=== PATIENT | male | born 1945 | race Two or more races ===

== ENCOUNTER → 2018-02-06 | Outpatient (CLI) | END | disposition home or self-care (01) ==

== ENCOUNTER 2018-02-07 06:59 | Inpatient (IN) | END 2018-02-07 23:15 | disposition home or self-care (01) | DRG 812 ==

== ENCOUNTER 2018-02-21 16:28 | Inpatient (IN) | END 2018-02-22 17:29 | disposition home or self-care (01) | DRG 809 ==

== ENCOUNTER 2018-03-07 11:26 | Inpatient (IN) | END 2018-03-11 20:25 | disposition still patient (30) | DRG 728 ==

== ENCOUNTER 2018-04-03 15:37 | Observation (INO) | END 2018-04-05 10:20 | disposition home or self-care (01) ==

== ENCOUNTER 2018-05-16 06:53 | Observation (INO) | payer MEDICARE, OTHER ==
[~2018-05-16] VITALS: Ht 180.3 cm; Wt 86.4 kg
[~2018-05-16 06:53] MED LIST: CARV12.579 PO; FESO4TAB PO; ICOS1CAP PO; LISI10TA2 PO; MELO7.5T38 PO; MEMA7CAP PO; OMEP1CAP24 PO; ONDA4TAB13 PO; PROC10TA10 PO; QUET150T PO; ROSU40TA35 PO; TAMS0.4C2 PO; VILA40TA PO
[2018-05-16 06:55] VITALS: Ht 180.3 cm; Wt 86.4 kg
[2018-05-16] MEDS ORDERED: PANTOPRAZOLE 40 MG INJ IV STA (07:07)
[2018-05-16] MEDS ORDERED: SOD CHLORIDE 0.9% 0 ML IV ONE (07:18)
[2018-05-16] MEDS ORDERED: ACETAMINOPHEN 325 MG TAB PO PRN ×2 (08:00→10:00)
[2018-05-16] MEDS ORDERED: ONDANSETRON 4 MG INJ IV PRN (08:00)
--- NOTE | 2018-05-16 08:26 | ERD ---
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 The patient was sent by Dr. Reed for transfusion of 4 units of packed red blood cells for a hemoglobin of less than 7. He denies bleeding. He has no symptoms at this time. He denies chest pain or shortness of breath. Upon review of old medical records this is the patient's sixth visit to the ER since January 2018 and he does get admitted frequently for transfusions. ROS All systems reviewed and are negative except as per history of present illness. Medications Home Meds Reported Medications Vilazodone Hcl (Viibryd) 40 Mg Tablet, 40 MG PO DAILY, TAB 04/03/18 Tamsulosin Hcl* (Tamsulosin Hcl*) 0.4 Mg Cap.er.24h, 0.4 MG PO HS, CAP 04/03/18 Memantine* (Namenda* XR) 7 Mg Cap.spr.24, 7 MG PO DAILY, #30 TAB 04/03/18 Quetiapine Fumarate* (Seroquel* XR) 150 Mg Tab.sr.24h, 150 MG PO DAILY, #30 TAB 04/03/18 Ondansetron Hcl* (Zofran*) 4 Mg Tab, 4 MG PO BID PRN for NAUSEA AND OR VOMITING, TAB 04/03/18 Prochlorperazine* (Prochlorperazine*) 10 Mg Tablet, 10 MG PO BID PRN for NAUSEA, TAB 04/03/18 Lisinopril* (Lisinopril*) 10 Mg Tablet, 10 MG PO BID, #30 TAB 04/03/18 Icosapent Ethyl (VASCEPA) 1 Gm Capsule, 1 GM PO QID, CAP 04/03/18 Fesoterodine Fumarate (Toviaz) 4 Mg Tab.sr.24h, 4 MG PO DAILY, TAB 04/03/18 Omeprazole/Sodium Bicarbonate (OMEPRAZOLE-BICARB 40-1,100 CAP) 1 Each Capsule, 1 CAP PO DAILY, #30 CAP 04/03/18 Rosuvastatin Calcium* (Crestor*) 40 Mg Tablet, 40 MG PO QHS, #30 TAB 04/03/18 Meloxicam* (Meloxicam*) 7.5 Mg Tablet, 7.5 MG PO BID, #30 TAB 04/03/18 Carvedilol* (Carvedilol*) 12.5 Mg Tablet, 12.5 MG PO BID, #60 TAB 04/03/18 Allergies Allergies: Coded Allergies: No Known Allergy (Unverified , 05/16/18) PMhx/Soc History of Surgery: No Anesthesia Reaction: No Hx Neurological Disorder: No Hx Respiratory Disorders: No Hx Cardiac Disorders: Yes (cardiomegaly, HTN, HLD, IN ) Hx Psychiatric Problems: No Hx Miscellaneous Medical Probl: Yes (Anemia) Hx Alcohol Use: No Hx Substance Use: No Hx Tobacco Use: No Smoking Status: Never smoker FmHx Family History: No diabetes Physical Exam Vitals Vital Signs Date Temp Pulse Resp B/P (MAP) Pulse Ox O2 O2 Flow FiO2 Time Delivery Rate 05/16/18 88 16 129/72 99 Room Air 07:30 (91) 05/16/18 97.8 89 18 147/67 100 06:55 (93) Physical Exam Const: No acute distress Head: Atraumatic Eyes: Normal Conjunctiva ENT: Normal External Ears, Nose and Mouth. Neck: Full range of motion. No meningismus. Resp: Clear to auscultation bilaterally Cardio: Regular rate and rhythm, no murmurs Abd: Soft, non tender, non distended. Normal bowel sounds Skin: Pale skin Back: No midline or flank tenderness Ext: No cyanosis, or edema Neur: Awake and alert Psych: Normal Mood and Affect Result Diagram: 05/16/18 0716 05/16/18 0716 Results 24 hrs Laboratory Tests Test 05/16/18 07:16 White Blood Count 13.1 10^3/ul Red Blood Count 2.43 10^6/ul Hemoglobin 6.9 g/dl Hematocrit 21.3 % Mean Corpuscular Volume 87.7 fl Mean Corpuscular Hemoglobin 28.4 pg Mean Corpuscular Hemoglobin Concent 32.4 g/dl Red Cell Distribution Width 15.2 % Platelet Count 85 10^3/UL Mean Platelet Volume 9.0 fl Immature Granulocytes % 0.200 % Neutrophils % % Lymphocytes % % Monocytes % % Eosinophils % % Basophils % % Nucleated Red Blood Cells % 0.0 /100WBC Immature Granulocytes # 0.030 10^3/ul Neutrophils # 10^3/ul Lymphocytes # 10^3/ul Monocytes # 10^3/ul Eosinophils # 10^3/ul Basophils # 10^3/ul Nucleated Red Blood Cells # 10^3/ul Prothrombin Time 14.0 Sec Prothrombin Time Ratio 1.1 INR International Normalized Ratio 1.07 Activated Partial Thromboplast Time 22.3 Sec Sodium Level 143 mmol/L Potassium Level 4.1 mmol/L Chloride Level 104 mmol/L Carbon Dioxide Level 27 mmol/L Anion Gap 12 Blood Urea Nitrogen 14 mg/dl Creatinine 0.66 mg/dl Est Glomerular Filtrat Rate mL/min mL/min Glucose Level 145 mg/dl Calcium Level 9.1 mg/dl Total Bilirubin 0.6 mg/dl Direct Bilirubin 0.00 mg/dl Indirect Bilirubin 0.6 mg/dl Aspartate Amino Transf (AST/SGOT) 58 IU/L Alanine Aminotransferase (ALT/SGPT) 68 IU/L Alkaline Phosphatase 69 IU/L Troponin I < 0.012 ng/ml Total Protein 8.9 g/dl Albumin 4.0 g/dl Globulin 4.90 g/dl Albumin/Globulin Ratio 0.81 Current Medications Medications Dose Sig/Tony Start Time Status Last (Trade) Ordered Route PRN Stop Time Admin Dose Reason Admin 40 mg ONCE STAT 05/16/18 DC 05/16/18 Pantoprazole IV 07:07 07:57 (Protonix 05/16/18 07:08 Iv) Sodium 0 ml @ 0 Q0M ONCE 05/16/18 DC Chloride mls/hr IV 07:18 05/16/18 07:19 Ondansetron 4 mg BRIDGE ORDER 05/16/18 HCl (Zofran PRN IV 08:00 Inj) vomiting 05/17/18 07:59 650 mg ER BRIDGE 05/16/18 Acetaminophen PRN PO pain 08:00 (Tylenol 05/17/18 07:59 Tab) Procedures/MDM EKG read by me: Rate/Rhythm: Regular rate and rhythm at a normal rate Intervals: Normal Impression: No evidence of ischemia or arrhythmia Patient is a 72-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 The patient has a hemoglobin of less than 7 and I will transfused 4 units of packed red blood cells. The patient will be admitted to the care of Dr. Vera the primary doctor to a medical surgical bed. Critical Care: Time: 35 minutes excluding all billable procedures. Treatments/Evaluations: Close monitoring and treatment of unstable vital signs, cardiorespiratory, and neurologic status, while maintaining tight balance of fluid, respiratory, and cardiac interventions. Departure Diagnosis: Primary Impression: Anemia Anemia type: unspecified type Qualified Codes: D64.9 - Anemia, unspecified Condition: ELANA Samano MD May 16, 2018 08:26
[2018-05-16 09:25] VITALS: BP 133/64; PULSE 87; RESP 20
--- NOTE | 2018-05-16 09:39 | NUR ---
Received pt from ER dx acute anemia. Pt accompanied by a friend, RIA ZAPATA, Hakeem Maya MD made aware, received orders for 4 units PRBC, 20mg lasix after 2nd bag, tylenol 650mg q4h for pain and temp >100, protonix 40mg po daily, morphine 2mg IV q4h prn for severe pain, norco 5/325 q4h prn for moderate pain, CBC/CMP in the am, cardiac diet.
[2018-05-16] MEDS ORDERED: HYDROCODONE/APAP (5/325) TAB PO PRN (10:00)
[2018-05-16] MEDS ORDERED: FUROSEMIDE 20 MG INJ IV ONE (10:00)
[2018-05-16] MEDS ORDERED: morphine 4 MG/ML VIAL IV PRN (10:00)
--- NOTE | 2018-05-16 11:59 | CONS ---
Consultation Date/Type/Reason Admit Date/Time May 16, 2018 at 07:52 Date/Time of Note DATE: 05/16/18 TIME: 11:59 Past Medical History Home Meds Reported Medications Vilazodone Hcl (Viibryd) 40 Mg Tablet, 40 MG PO DAILY, TAB 04/03/18 Tamsulosin Hcl* (Tamsulosin Hcl*) 0.4 Mg Cap.er.24h, 0.4 MG PO HS, CAP 04/03/18 Memantine* (Namenda* XR) 7 Mg Cap.spr.24, 7 MG PO DAILY, #30 TAB 04/03/18 Quetiapine Fumarate* (Seroquel* XR) 150 Mg Tab.sr.24h, 150 MG PO DAILY, #30 TAB 04/03/18 Ondansetron Hcl* (Zofran*) 4 Mg Tab, 4 MG PO BID PRN for NAUSEA AND OR VOMITING, TAB 04/03/18 Prochlorperazine* (Prochlorperazine*) 10 Mg Tablet, 10 MG PO BID PRN for NAUSEA, TAB 04/03/18 Lisinopril* (Lisinopril*) 10 Mg Tablet, 10 MG PO BID, #30 TAB 04/03/18 Icosapent Ethyl (VASCEPA) 1 Gm Capsule, 1 GM PO QID, CAP 04/03/18 Fesoterodine Fumarate (Toviaz) 4 Mg Tab.sr.24h, 4 MG PO DAILY, TAB 04/03/18 Omeprazole/Sodium Bicarbonate (OMEPRAZOLE-BICARB 40-1,100 CAP) 1 Each Capsule, 1 CAP PO DAILY, #30 CAP 04/03/18 Rosuvastatin Calcium* (Crestor*) 40 Mg Tablet, 40 MG PO QHS, #30 TAB 04/03/18 Meloxicam* (Meloxicam*) 7.5 Mg Tablet, 7.5 MG PO BID, #30 TAB 04/03/18 Carvedilol* (Carvedilol*) 12.5 Mg Tablet, 12.5 MG PO BID, #60 TAB 04/03/18 Medications Current Medications Ondansetron HCl (Zofran Inj) 4 mg BRIDGE ORDER PRN IV vomiting; Start 05/16/18 at 08:00; Stop 05/17/18 at 07:59 Tamsulosin HCl (Flomax) 0.4 mg HS PO ; Start 05/16/18 at 21:00 Acetaminophen (Tylenol Tab) 650 mg Q4H PRN PO MILD PAIN(1-3)OR ELEVATED TEMP; Start 05/16/18 at 10:00 Pantoprazole (Protonix Tab) 40 mg DAILY@06 PO ; Start 05/17/18 at 06:00 Morphine Sulfate (morphine) 2 mg Q4H PRN IV SEVERE PAIN LEVEL 7-10; Start 05/16/18 at 10:00 Acetaminophen/ Hydrocodone Bitart (Plummer (5/325)) 1 tab Q4H PRN PO MODERATE PAIN LEVEL 4-6; Start 05/16/18 at 10:00 Allergies: Coded Allergies: No Known Allergy (Unverified , 05/16/18) Social History Smoking Status: Never smoker Exam/Review of Systems Exam Vitals Vital Signs Date Temp Pulse Resp B/P (MAP) Pulse Ox O2 O2 Flow FiO2 Time Delivery Rate 05/16/18 99.0 87 20 133/64 97 Room Air 09:25 (87) Results Result Diagram: 05/16/18 0716 05/16/18 0716 Results 24hrs Laboratory Tests Test 05/16/18 07:16 White Blood Count 13.1 #H Red Blood Count 2.43 #L Hemoglobin 6.9 #*L Hematocrit 21.3 #L Mean Corpuscular Volume 87.7 Mean Corpuscular Hemoglobin 28.4 L Mean Corpuscular Hemoglobin Concent 32.4 Red Cell Distribution Width 15.2 H Platelet Count 85 #L Mean Platelet Volume 9.0 # Immature Granulocytes % 0.200 Neutrophils % Segmented Neutrophils % (Manual) 3 L Lymphocytes % Lymphocytes % (Manual) 42 Monocytes % Monocytes % (Manual) 6 Eosinophils % Eosinophils % (Manual) 3 Basophils % Blast Cells % (Manual) 46.0 H Nucleated Red Blood Cells % 0.0 Immature Granulocytes # 0.030 Neutrophils # Lymphocytes (Manual) 5.5 H Lymphocytes # Monocytes # Monocytes # (Manual) 0.7 Eosinophils # Basophils # Nucleated Red Blood Cells # Platelet Estimate DECREASED Polychromasia 1+ Anisocytosis 1+ Microcytosis 1+ Prothrombin Time 14.0 Prothrombin Time Ratio 1.1 INR International Normalized Ratio 1.07 Activated Partial Thromboplast Time 22.3 L Sodium Level 143 Potassium Level 4.1 Chloride Level 104 Carbon Dioxide Level 27 Anion Gap 12 Blood Urea Nitrogen 14 Creatinine 0.66 Est Glomerular Filtrat Rate mL/min Glucose Level 145 Calcium Level 9.1 Total Bilirubin 0.6 Direct Bilirubin 0.00 Indirect Bilirubin 0.6 Aspartate Amino Transf (AST/SGOT) 58 H Alanine Aminotransferase (ALT/SGPT) 68 Alkaline Phosphatase 69 Troponin I < 0.012 Total Protein 8.9 H Albumin 4.0 Globulin 4.90 H Albumin/Globulin Ratio 0.81 HEIDE LYONS MD May 16, 2018 11:59
[2018-05-16 14:00] VITALS: BP 123/61; PULSE 85; RESP 18
[2018-05-16] MEDS ORDERED: PROCHLORPERAZINE 10 MG TAB PO PRN (17:00)
[2018-05-16] MEDS ORDERED: ZOLPIDEM 5 MG TAB PO PRN (17:00)
[2018-05-16] MEDS ORDERED: ONDANSETRON 4 MG TAB PO PRN (17:00)
--- NOTE | 2018-05-16 17:52 | HP ---
DATE OF ADMISSION: 05/16/2018 HISTORY OF PRESENT ILLNESS: A 72-year-old male who spent was admitted on 05/16/2018 for acute anemia . This is a 72-year-old male with history of acute myelocytic leukemia who presents frequently for b lood transfusion secondary to anemia. Dr. Reed is his oncologist does follow up with the patien t and myself as the primary care physician. PAST MEDICAL HISTORY: Hypertension, coronary artery disease, depression, gastroesophageal reflux dis ease and benign prostatic hypertrophy. HOME MEDICATIONS: He is on: 1. Vyvanse 40 once a day. 2. Tamsulosin 0.4 once a day. 3. Namenda XR once a day. 4. Seroquel 150 daily. 5. Zofran 4 mg p.r.n. for nausea. 6. He is also on lisinopril 10 mg b.i.d. 7. 1 gram twice a day. 8. Toviaz 4 mg daily. 9. Omeprazole 40 mg p.o. daily. 10. Rosuvastatin 40 mg daily. 11. Meloxicam 7.5 twice a day. 12. Carvedilol 12.5 twice a day. ALLERGIES: HE HAS NO KNOWN DRUG ALLERGIES. FAMILY HISTORY: Negative other than hypertension and diabetes. SOCIAL HISTORY: Negative. No alcohol abuse at this time and never smoked. REVIEW OF SYSTEMS: The patient has been more or less no complaint. He is just weak and pale. He de nies of any headache. He denies of any chest pain. He denies of any abdominal pain, nausea, vomitin g. He denies of any hesitancy, urgency or pain during urination. He denies of any numbness of one s sravanthi more than the other. PHYSICAL EXAMINATION: VITAL SIGNS: The blood pressure is 129/70, heart rate is 88, respiratory rate 18. He is afebrile, s aturating 100% on room air. GENERAL: The patient is alert and oriented x3 in no acute distress. HEENT: Head is atraumatic, normocephalic. Pupils are equal and reactive to light. Extraocular musc les are intact. Nares are clear. No obstruction, no deviation of septum. Oral cavity: Normal oral hygiene. Pale over the gingiva and all over the face also paleness. NECK: Supple. No JVD, no surgical scars, no lymph nodes palpable over the neck. CHEST: AP contour is within normal limits. Breasts and nipples are normal. No nipple retraction. HEART: S1, S2. Regular rate and rhythm with cardiomegaly and mild systolic murmur over the apex. LUNGS: Clear to auscultation. No wheezes or crackles and no abnormalities over the lungs. ABDOMEN: Soft, positive bowel sounds. No hepatosplenomegaly, no masses palpable over the abdomen an d no rebound tenderness. EXTREMITIES: No edema, clubbing or cyanosis over the extremities. LABORATORY DATA: White count is 13.11, hemoglobin is 16.9, hematocrit 21.3 and platelets are 85. So dium 143, potassium 4.1 and chloride is 145. ADMITTING DIAGNOSES: 1. Acute anemia, acute myelocytic leukemia. 2. Hypertension. 3. Coronary artery disease. 4. Benign prostatic hypertrophy. 5. Neurogenic bladder. 6. Gastroesophageal reflux disease. 7. Degenerative joint disease. 8. Depression. The patient will be admitted to med/surg. He will be transfused 4 units of packed red blood cells an d I will follow up with the patient and possible discharge within 24 hours. Dictated By: ARMANDO ZAMORA/ANTONINO Conf#: [id number] DID#: [id number]
[2018-05-16] MEDS ORDERED: FUROSEMIDE 20 MG INJ ONE (19:47)
[2018-05-16 20:02] VITALS: BP 143/67; PULSE 87; RESP 16
[2018-05-16] MEDS: LISINOPRIL 10 MG TAB PO SCH (20:30)
[2018-05-16] MEDS ORDERED: TAMSULOSIN (SR) 0.4 MG CAP PO SCH (21:00)
[2018-05-17 02:12] VITALS: BP 104/58; PULSE 80; RESP 16
[2018-05-17] MEDS ORDERED: PANTOPRAZOLE (EC) 40 MG TAB PO SCH (06:00)
--- NOTE | 2018-05-17 06:56 | NUR ---
PATIENT HAD FINISHED A TOTAL OF 4 UNITS OF PRBC'S. NO ADVERSE EFFECTS NOTED. CONTINUE POC INCLUDING MONITORING OF CBC. PATIENT TO BE DISCHARGED HOME WHEN CLEARED BY MD.
[2018-05-17 07:18] VITALS: BP 133/71; PULSE 84; RESP 16
[2018-05-17] MEDS: LISINOPRIL 10 MG TAB PO SCH (08:19)
--- NOTE | 2018-05-17 09:15 | CONS ---
Consultation Date/Type/Reason Admit Date/Time May 16, 2018 at 07:52 Initial Consult Date Date/Time of Note DATE: 05/17/18 TIME: 09:15 Exam/Review of Systems Exam Vitals Vital Signs Date Temp Pulse Resp B/P (MAP) Pulse Ox O2 O2 Flow FiO2 Time Delivery Rate 05/17/18 97.9 84 16 133/71 98 07:18 (91) 05/16/18 Room Air 14:00 Intake and Output 05/16/18 05/16/18 05/17/18 1414:59 22:59 06:59 IntakeIntake Total 360 ml 1060 ml 700 ml BalanceBalance 360 ml 1060 ml 700 ml Results Result Diagram: 05/16/18 0716 05/17/18 0512 Results 24hrs Laboratory Tests Test 05/17/18 05:12 05/17/18 06:18 White Blood Count Pending Red Blood Count Pending Hemoglobin Pending Hematocrit Pending Mean Corpuscular Volume Pending Mean Corpuscular Hemoglobin Pending Mean Corpuscular Hemoglobin Concent Pending Red Cell Distribution Width Pending Platelet Count Pending Mean Platelet Volume Pending Sodium Level 143 Potassium Level 4.3 Chloride Level 102 Carbon Dioxide Level 31 Anion Gap 10 Blood Urea Nitrogen 15 Creatinine 0.69 Est Glomerular Filtrat Rate mL/min Glucose Level 105 # Calcium Level 8.8 Total Bilirubin 1.1 Direct Bilirubin 0.00 Indirect Bilirubin 1.1 Aspartate Amino Transf (AST/SGOT) 64 H Alanine Aminotransferase (ALT/SGPT) 83 H Alkaline Phosphatase 63 Total Protein 8.1 Albumin 3.6 Globulin 4.50 H Albumin/Globulin Ratio 0.80 Lab Scanned Report BLOOD TRANSFUSION HEIDE LYONS MD May 17, 2018 09:15
--- NOTE | 2018-05-17 10:23 | NUR ---
DISCHARGE NOTES PT D/C TO HOME VIA WALKING OUT OF UNIT ACCOMPANIED BY FRIEND. IV REMOVED, CATHETER INTACT. DISCHARGE INSTRUCTIONS PROVIDED WITH THE OPPORTUNITY TO ASK QUESTIONS. INFORMED PT TO FOLLOW UP WITH PCP IN 1-2 WEEKS. ALL HOME MEDS TO BE RESUMED. INFORMED PT TO CALL 911 OR GO TO THE NEAREST EMERGENCY ROOM IF EXPERIENCING CHEST PAIN, SHORTNESS OF BREATH, DIFFICULTY SPEAKING, VISION CHANGES, CONFUSION,OR ANY DISCOMFORT. PT VERBALIZES UNDERSTANDING OF DISCHARGE INSTRUCTIONS. PT ALERT, ORIENTED, AND STABLE UPON DISCHARGE.
--- NOTE | 2018-05-17 16:33 | DS ---
DATE OF ADMISSION: 05/16/2018 DATE OF DISCHARGE: 05/17/2018 HISTORY OF PRESENT ILLNESS: The patient was admitted for acute anemia, hypotension, generalized weak ness with past medical history of AML, hypertension, degenerative joint disease, dyslipidemia, gastro esophageal reflux disease, depression and benign prostatic hypertrophy. The patient comes frequently to the hospital for blood transfusions. He has been under consultation with Dr. Reed, the onco logist. She had offered chemotherapy, but the patient has refused chemotherapy for his acute AML, so he frequently comes in for blood transfusions. The patient was admitted and was transfused 4 units of packed red blood cells. REVIEW OF SYSTEMS: He denies of any chest pain. He denies of any headache. Denies any abdominal pa in, nausea, vomiting. Denies any hesitancy, urgency or pain during urination. PHYSICAL EXAMINATION: VITAL SIGNS: At this time, blood pressure is 133/71, heart rate is 84, respiratory rate 18. He is a febrile, saturating 98%. GENERAL: Alert and oriented x3, in no acute distress. HEENT: Head is atraumatic, normocephalic. Pupils are equal and reactive to light. NECK: Supple. No JVD, no surgical scars, no lymph nodes palpable over the neck. CHEST: AP contour is within normal limits. BREASTS: Nipples are normal, no nipple retraction. HEART: S1, S2. Regular rate and rhythm with a mild systolic murmur over the apex. LUNGS: Clear to auscultation. No wheezes or crackles and no abnormalities over the lungs. ABDOMEN: Soft, positive bowel sounds. No hepatosplenomegaly, no masses palpable over the abdomen. EXTREMITIES: No edema, clubbing or cyanosis of the extremities. LABORATORY DATA: Today's labs after 4 units of blood transfusion, hemoglobin is 9.3, hematocrit is 2 8.8, white count 16.5 and platelet count is 78. Chemistry: BUN is 15, creatinine 0.69, elevated colt er function tests which are his baseline. Sodium 143, potassium 4.3, chloride 102. The patient is in stable condition. No complications after blood transfusion, feeling very well and the patient was discharged in stable condition home to follow up with myself and the oncologist as sc heduled. Dictated By: ARMANDO ZAMORA/ANTONINO Conf#: [id number] [facility]#: [id number]
== END 2018-05-17 10:30 | disposition home or self-care (01) ==
LOC: E/R 06:53 → INTOOBSV 07:52 → 2NE 07:52
PROVIDERS: ADMIT Family Medicine; ATTEND Family Medicine
DX: D64.9 Anemia, unspecified (principal); C92.00 Acute myeloblastic leukemia, not having achieved remission; I10 Essential (primary) hypertension; I25.10 Atherosclerotic heart disease of native coronary artery without angina pectoris; N40.0 Benign prostatic hyperplasia without lower urinary tract symptoms; E78.5 Hyperlipidemia, unspecified; I25.2 Old myocardial infarction; M19.90 Unspecified osteoarthritis, unspecified site; K21.9 Gastro-esophageal reflux disease without esophagitis; F32.9 Major depressive disorder, single episode, unspecified; N31.9 Neuromuscular dysfunction of bladder, unspecified
CPT/HCPCS: 36415; 36430; 80053; 84484; 85025; 85610; 85730; 86644; 86850; 86870; 86900; 86901; 86920; 93005; 99291; C9113; G0378; J1940; J7040; P9016

== ENCOUNTER 2018-05-20 06:28 | Emergency (ER) | payer MEDICARE, OTHER ==
[~2018-05-20] VITALS: Ht 180.3 cm; Wt 84.2 kg
[2018-05-20 06:31] VITALS: Ht 180.3 cm; Wt 84.2 kg
[2018-05-20] MEDS ORDERED: HYDROmorphONE 1 MG/ML SYG IV STA (07:12)
[2018-05-20] MEDS ORDERED: SOD CHLORIDE 0.9% 500 ML IV STA (07:12)
[2018-05-20] MEDS ORDERED: ONDANSETRON 4 MG INJ IV STA (07:12)
[2018-05-20] MEDS ORDERED: IOHEXOL 300MG/ML 150 ML BTL ONE (07:53)
[2018-05-20] MEDS ORDERED: SOD CHLORIDE 0.9% 100 ML ONE (07:53)
--- NOTE | 2018-05-20 08:27 | NUR ---
Procedure Ordered:CT ABD/PEL W/CONTRAST Reason for Exam Today:LUQ PAIN Previous Exams: Allergies:NKDA Current Medications Taken: Glucophage ( ) Metformin ( ) Previous reaction to contrast media: Yes ( ) No (X ) : Yes ( ) No ( X) Asthma: Yes ( ) No ( X) Diabetes: Yes ( ) No ( X) Myeloma: Yes ( ) No ( X) Heart Disease: Yes ( ) No ( X) Cardiac Disease: Yes ( ) No (X ) Kidney Disease: Yes ( ) No ( X) Vascular Disease: Yes ( ) No ( X) Patient Teaching done: Yes ( ) No ( ) Tug Master Used: Yes ( ) No ( ) Name of Tug Master: Language Used: As part of the test requested by your doctor, contrast media may be injected into your vein while the x-rays are being taken. Occasionally, reactions from IV contrast may occur. The physician and staff of this hospital are trained to treat these reactions. Select the type of Contrast that will be given to patient: Isovue 300 ( ) Isovue 370 ( ) Visipaque ( ) Cystografin ( ) OMNIPAQUE 300 (X) Gastrographin ( ) Redi-cat ( ) Volumen ( ) Amount of contrast to be given: 100CC IV (X ) PO ( ) Date given:05/20/18 Lab Values: BUN: 21 Creatinine:0.66 Reason why contrast cannot be given: Location of patient pre-procedure:[facility] 18 Location of patient post procedure:[facility] 18 PT TOLERATED IV CONTRAST INJECTION WELL
--- NOTE | 2018-05-20 09:13 | ERD ---
ER Documentation Chief Complaint Chief Complaint Complains of left flank pain since last night HPI This is a 72-year-old male who is complaining of pain in the left upper quadrant described as sharp and worse when he takes a big deep breath in. There is no pain with normal respirations. No pain in the back but he does have some mild left shoulder pain at times when he breathes in deeply.. No difficulty breathing no palpitations no syncope. The patient has a history of "blood cancer" and had a blood transfusion here last week. No GI symptoms ROS All systems reviewed and are negative except as per history of present illness. Medications Home Meds Active Scripts Hydrocodone/Acetaminophen ([place] 5-325 Tablet) 1 Each Tablet, 1 TAB PO Q6H PRN for PAIN, #15 TAB Prov:KALEY BUSH DO 05/20/18 Reported Medications Vilazodone Hcl (Viibryd) 40 Mg Tablet, 40 MG PO DAILY, TAB 04/03/18 Tamsulosin Hcl* (Tamsulosin Hcl*) 0.4 Mg Cap.er.24h, 0.4 MG PO HS, CAP 04/03/18 Memantine* (Namenda* XR) 7 Mg Cap.spr.24, 7 MG PO DAILY, #30 TAB 04/03/18 Quetiapine Fumarate* (Seroquel* XR) 150 Mg Tab.sr.24h, 150 MG PO DAILY, #30 TAB 04/03/18 Ondansetron Hcl* (Zofran*) 4 Mg Tab, 4 MG PO BID PRN for NAUSEA AND OR VOMITING, TAB 04/03/18 Prochlorperazine* (Prochlorperazine*) 10 Mg Tablet, 10 MG PO BID PRN for NAUSEA, TAB 04/03/18 Lisinopril* (Lisinopril*) 10 Mg Tablet, 10 MG PO BID, #30 TAB 04/03/18 Icosapent Ethyl (VASCEPA) 1 Gm Capsule, 1 GM PO QID, CAP 04/03/18 Fesoterodine Fumarate (Toviaz) 4 Mg Tab.sr.24h, 4 MG PO DAILY, TAB 04/03/18 Omeprazole/Sodium Bicarbonate (OMEPRAZOLE-BICARB 40-1,100 CAP) 1 Each Capsule, 1 CAP PO DAILY, #30 CAP 04/03/18 Rosuvastatin Calcium* (Crestor*) 40 Mg Tablet, 40 MG PO QHS, #30 TAB 04/03/18 Meloxicam* (Meloxicam*) 7.5 Mg Tablet, 7.5 MG PO BID, #30 TAB 04/03/18 Carvedilol* (Carvedilol*) 12.5 Mg Tablet, 12.5 MG PO BID, #60 TAB 04/03/18 Allergies Allergies: Coded Allergies: No Known Allergy (Unverified , 05/20/18) PMhx/Soc History of Surgery: No Anesthesia Reaction: No Hx Neurological Disorder: No Hx Respiratory Disorders: No Hx Cardiac Disorders: No Hx Psychiatric Problems: No Hx Miscellaneous Medical Probl: Yes (LYMPHOMA) Hx Alcohol Use: No Hx Substance Use: No Hx Tobacco Use: No Smoking Status: Never smoker FmHx Family History: No coronary disease Physical Exam Vitals Vital Signs Date Temp Pulse Resp B/P (MAP) Pulse Ox O2 O2 Flow FiO2 Time Delivery Rate 05/20/18 98.2 71 17 143/83 99 Room Air 09:00 (103) 05/20/18 98.2 95 20 148/72 97 06:31 (97) Physical Exam Const: Well-developed, well-nourished Head: Atraumatic, normocephalic Eyes: Normal Conjunctiva, PERRLA, EOMI, normal sclera, no nystagmus ENT: Normal External Ears, Nose and Mouth, moist mucus membranes. Neck: Full range of motion. No meningismus, no lymphadenopathy. Resp: Clear to auscultation bilaterally, no wheezing, rhonchi, rales Cardio: Regular rate and rhythm, no murmurs, S1 S2 present Abd: Soft, mild to moderate left upper quadrant tenderness, non distended. Normal bowel sounds, no guarding or rebound, no pulsitile abdominal masses or bruits Skin: No petechiae or rashes, no ecchymosis , no maculopapular rash Back: No midline or flank tenderness Ext: No cyanosis, or edema, FROM x 4, normal inspection, neurovascularly intact x 4 Neur: Awake and alert, STR 5/5 x 4, sensation intact x 4, no focal findings, cerebellum intact Psych: Normal Mood and Affect Result Diagram: 05/20/18 0716 05/20/18 0716 Results 24 hrs Laboratory Tests Test 05/20/18 07:16 White Blood Count 15.9 10^3/ul Red Blood Count 3.23 10^6/ul Hemoglobin 9.3 g/dl Hematocrit 28.0 % Mean Corpuscular Volume 86.7 fl Mean Corpuscular Hemoglobin 28.8 pg Mean Corpuscular Hemoglobin Concent 33.2 g/dl Red Cell Distribution Width 14.6 % Platelet Count 55 10^3/UL Mean Platelet Volume 9.3 fl Immature Granulocytes % 0.400 % Neutrophils % % Segmented Neutrophils % (Manual) 2 % Lymphocytes % % Lymphocytes % (Manual) 34 % Reactive Lymphocytes % (Manual) 2 % Monocytes % % Monocytes % (Manual) 11 % Eosinophils % % Eosinophils % (Manual) 2 % Basophils % % Blast Cells % (Manual) 49.0 % Nucleated Red Blood Cells % 0.0 /100WBC Immature Granulocytes # 0.070 10^3/ul Neutrophils # 10^3/ul Lymphocytes (Manual) 5.4 10^3/ul Lymphocytes # 10^3/ul Reactive Lymphocytes # 0.3 10^3/ul Monocytes # 10^3/ul Monocytes # (Manual) 1.7 10^3/ul Eosinophils # 10^3/ul Basophils # 10^3/ul Nucleated Red Blood Cells # 10^3/ul Platelet Estimate SIG DECREASED Poikilocytosis 1+ Anisocytosis 1+ Prothrombin Time 15.5 Sec Prothrombin Time Ratio 1.2 INR International Normalized Ratio 1.22 Activated Partial Thromboplast Time 32.0 Sec Sodium Level 142 mmol/L Potassium Level 4.7 mmol/L Chloride Level 105 mmol/L Carbon Dioxide Level 27 mmol/L Anion Gap 10 Blood Urea Nitrogen 21 mg/dl Creatinine 0.66 mg/dl Est Glomerular Filtrat Rate mL/min mL/min Glucose Level 143 mg/dl Calcium Level 9.1 mg/dl Total Bilirubin 1.0 mg/dl Direct Bilirubin 0.00 mg/dl Indirect Bilirubin 1.0 mg/dl Aspartate Amino Transf (AST/SGOT) 61 IU/L Alanine Aminotransferase (ALT/SGPT) 83 IU/L Alkaline Phosphatase 74 IU/L Total Protein 9.0 g/dl Albumin 4.0 g/dl Globulin 5.00 g/dl Albumin/Globulin Ratio 0.80 Lipase 24 U/L Current Medications Medications Dose Sig/Tony Start Time Status Last (Trade) Ordered Route PRN Stop Time Admin Dose Reason Admin Sodium 500 ml @ Q1H STAT 05/20/18 DC 05/20/18 Chloride 500 mls/hr IV 07:12 07:26 05/20/18 08:11 1 mg ONCE STAT 05/20/18 DC 05/20/18 Hydromorphone IV 07:12 07:26 HCl 05/20/18 07:15 (Dilaudid) Ondansetron 4 mg ONCE STAT 05/20/18 DC 05/20/18 HCl (Zofran IV 07:12 07:26 Inj) 05/20/18 07:15 IV Flush 10 ml STK-MED 05/20/18 DC 05/20/18 (NS 10 ml) ONCE .ROUTE 07:53 08:25 05/20/18 07:54 Sodium 100 ml @ ud STK-MED 05/20/18 DC 05/20/18 Chloride ONCE .ROUTE 07:53 08:25 05/20/18 07:54 Iohexol 150 ml STK-MED 05/20/18 DC 05/20/18 (Omnipaque ONCE .ROUTE 07:53 08:26 300mg/ ml) 05/20/18 07:54 Procedures/MDM DIAGNOSTIC IMAGING REPORT Patient: CHRIS IBARRA : 1945 Age: 72 Sex: M MR #: [id number] DOS: 05/20/18711 Ordering MD: KALEY BUSH DO Location: E/R Room/Bed: PROCEDURE: CT ABDOMEN AND PELVIS WITH CONTRAST CLINICAL INDICATION: Left upper quadrant pain. History of lymphoma evaluate spleen. TECHNIQUE: CT of the abdomen and pelvis was performed following administration of 100 mL IV Omnipaque-300. Oral contrast was not administered prior to the examination. Coronal and sagittal reformatted images were obtained from the axial source images. Images were reviewed on a high-resolution PACS workstation. DICOM images are available. Dose information: Based on a 32 cm phantom, the estimated radiation dose (CTDIvol mGy for each series in this exam is 14.92. The estimated cumulative dose (DLP mGy-cm) is 1001.48. One or more of the following dose reduction techniques were used: - Automated exposure control. - Adjustment of the mA and/or kV according to patient size. - Use of iterative reconstruction technique. COMPARISON: None available. FINDINGS: LUNG BASES: Emphysematous changes. Bibasilar dependent subsegmental atelectasis. Cardiomegaly without pericardial effusion. Coronary and aortic atherosclerotic calcifications. 7 mm right cardiophrenic lymph node. ABDOMEN/PELVIS: Liver: Hepatomegaly (21 cm). Nonspecific periportal edema. Diagnostic considerations include congestive cardiac failure, secondary cardiac congestion, lymphadenopathy at the kamini hepatis causing lymphatic obstruction. Hepatic vasculature: Portal veins, splenic vein and SMV are patent. Hepatic veins are patent. Gallbladder: Mildly distended Bile ducts: No intrahepatic or extrahepatic biliary duct dilatation. Spleen: Moderate splenomegaly (19 cm). No splenic mass or infarct. Pancreas: Normal. Adrenal glands: Normal. Kidneys and ureters: No hydronephrosis or renal calculus. Multiple bilateral renal cyst measuring up to 3.4 x 3.0 (AP, transverse) cm on the right side and 2.8 x 1.9 cm (AP, transverse,) on the left side. Aorta and IVC: The aorta and IVC are patent. There are aortic atherosclerotic calcifications. Lymph nodes: Extensive lymphadenopathy. Locations and sizes are as follows: Periesophageal 10 mm, kamini hepatis 23 mm, mesenteric root axis 20 mm, aortocaval 20 mm, anterior to the inferior vena cava 20 mm, left para-aortic 15 mm, distal abdominal aorta 14 mm, left external iliac 13 mm, left obturator 13 mm, multiple sub centimeter bilateral inguinal lymph nodes. Gastrointestinal tract: Collapsed stomach. Small bowel loops are nondistended. Moderate retained fecal matter in the ascending through transverse colon sugg esting constipation. Appendix: The appendix is normal Bladder: Normal. Pelvic Organs: Enlarged prostate gland. Correlate with PSA levels Peritoneal cavity: No pneumoperitoneum. Small amount of free fluid in the pelvis. Abdominal wall: Normal. MUSCULOSKELETAL: Bones: No acute fracture.No suspicious bone lesions. Multilevel bridging anterior enthesopathy changes T7 - T11. None bridging L1-L4. IMPRESSION: 1. Moderate splenomegaly measuring 19 cm without splenic infarct or discrete splenic mass. 2. Hepatomegaly ( 21 cm). Periportal edema with considerations of congestive cardiac failure, secondary cardiac congestion, lymphadenopathy at the kamini hepatis causing lymphatic obstruction. 3. Extensive lymphadenopathy: Periesophageal 10 mm, kamini hepatis 23 mm, mesenteric root axis 20 mm, aortocaval 20 mm, anterior to the inferior vena cava 20 mm, left para-aortic 15 mm, distal abdominal aorta 14 mm, left external iliac 13 mm, left obturator 13 mm, multiple sub centimeter bilateral inguinal lymph nodes in keeping with a diagnosis of lymphoma. 4. Cardiomegaly. 5. Small amount of free intrapelvic fluid. 6. Large prostate gland. Correlate with PSA levels. RPTAT: HRSR Physician Elisabeth Date Time Electronically viewed and signed by Edis Hayward, Physician on 05/20/2018 08:50 RR/ CC: KALEY BUSH DO [id number] Feel the patient's pain is likely from splenomegaly. He has left upper quadrant pain worsening with deep breath and also demonstrates Juliana's sign. No evidence of splenic infarct or splenic rupture, no kidney stone no diverticulitis. Advised him to watch him at home will provide him with some pain medication and observation Patient feels much better at this time, and vital signs are normal, symptoms have improved. I did give strict instructions to return to the ED if symptoms continue or worsen, patient will otherwise follow-up with primary care physician. Patient understood instructions and agreed to plan. Disclaimer: Inadvertent spelling and grammatical errors are likely due to EHR/dictation software use and do not reflect on the overall quality of patient care. Also, please note that the electronic time recorded on this note does not necessarily reflect the actual time of the patient encounter. Departure Diagnosis: Primary Impression: Splenomegaly Additional Impression: Left upper quadrant pain Condition: Stable KALEY BUSH DO May 20, 2018 09:13
[2018-05-20] MEDS ORDERED: HYDR-4011 PO (09:52)
[2018-05-20 10:06] VITALS: BP 137/85; PULSE 73; RESP 17
== END 2018-05-20 10:07 | disposition home or self-care (01) ==
LOC: E/R 06:28
DX: R16.1 Splenomegaly, not elsewhere classified (principal); Z85.6 Personal history of leukemia
CPT/HCPCS: 36415; 74177; 80053; 83690; 85025; 85610; 85730; 96374; 96375; 99285; J1170; J2405; J7040; Q9967

== ENCOUNTER 2018-06-06 05:52 | Inpatient (IN) | payer MEDICARE, OTHER ==
[~2018-06-06] VITALS: Ht 185.4 cm; Wt 89.7 kg
[~2018-06-06 05:52] MED LIST changes: +HYDR-4011 PO
[2018-06-06] MEDS ORDERED: morphine 4 MG/ML VIAL IV STA (06:11)
[2018-06-06] MEDS ORDERED: ONDANSETRON 4 MG INJ IV STA (06:11)
--- NOTE | 2018-06-06 06:18 | ERD ---
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 The patient's hematology oncologist is Dr. Melchor. The patient indicates that yesterday he had outpatient ancillary laboratory work performed and he had worsening of his leukocytosis. He was instructed to come into the emergency department to be further evaluated. The patient states he had no fever no shaking or chills. He has had a productive cough with whitish sputum. He states his been having difficulty in breathing. He denies tobacco use. He denies any shortness of breath at rest or exertion. He does complain of diffuse myalgias. He states he is remained afebrile. He denies any abdominal pain. He had no hemoptysis no hematemesis no melanotic stools. He takes [place] every 4 hours for analgesic control. ROS All systems reviewed and are negative except as per history of present illness. Medications Home Meds Active Scripts Hydrocodone/Acetaminophen ([place] 5-325 Tablet) 1 Each Tablet, 1 TAB PO Q6H PRN for PAIN, #15 TAB Prov:KALEY BUSH DO 05/20/18 Reported Medications Vilazodone Hcl (Viibryd) 40 Mg Tablet, 40 MG PO DAILY, TAB 04/03/18 Tamsulosin Hcl* (Tamsulosin Hcl*) 0.4 Mg Cap.er.24h, 0.4 MG PO HS, CAP 04/03/18 Memantine* (Namenda* XR) 7 Mg Cap.spr.24, 7 MG PO DAILY, #30 TAB 04/03/18 Quetiapine Fumarate* (Seroquel* XR) 150 Mg Tab.sr.24h, 150 MG PO DAILY, #30 TAB 04/03/18 Ondansetron Hcl* (Zofran*) 4 Mg Tab, 4 MG PO BID PRN for NAUSEA AND OR VOMITING, TAB 04/03/18 Prochlorperazine* (Prochlorperazine*) 10 Mg Tablet, 10 MG PO BID PRN for NAUSEA, TAB 04/03/18 Lisinopril* (Lisinopril*) 10 Mg Tablet, 10 MG PO BID, #30 TAB 04/03/18 Icosapent Ethyl (VASCEPA) 1 Gm Capsule, 1 GM PO QID, CAP 04/03/18 Fesoterodine Fumarate (Toviaz) 4 Mg Tab.sr.24h, 4 MG PO DAILY, TAB 04/03/18 Omeprazole/Sodium Bicarbonate (OMEPRAZOLE-BICARB 40-1,100 CAP) 1 Each Capsule, 1 CAP PO DAILY, #30 CAP 04/03/18 Rosuvastatin Calcium* (Crestor*) 40 Mg Tablet, 40 MG PO QHS, #30 TAB 04/03/18 Meloxicam* (Meloxicam*) 7.5 Mg Tablet, 7.5 MG PO BID, #30 TAB 04/03/18 Carvedilol* (Carvedilol*) 12.5 Mg Tablet, 12.5 MG PO BID, #60 TAB 04/03/18 Allergies Allergies: Coded Allergies: No Known Allergy (Unverified , 06/06/18) PMhx/Soc History of Surgery: Yes (appendectomy) Anesthesia Reaction: No Hx Neurological Disorder: No Hx Respiratory Disorders: No Hx Cardiac Disorders: Yes (HTN, CAD) Hx Psychiatric Problems: Yes (Depression) Hx Miscellaneous Medical Probl: Yes Hx Alcohol Use: No Hx Substance Use: No Hx Tobacco Use: No Physical Exam Vitals Vital Signs Date Temp Pulse Resp B/P (MAP) Pulse Ox O2 O2 Flow FiO2 Time Delivery Rate 06/06/18 91 18 136/73 99 Nasal 2.0 07:35 (94) Cannula 06/06/18 91 20 82 21 06:36 06/06/18 98.7 100 20 147/65 90 05:58 (92) Physical Exam Constitutional:Well-developed. Well-nourished. HEENT:Normocephalic. Atraumatic.Pupils were equal round reactive to light. Moist mucous membranes.No tonsillar exudates. Conjunctival pallor Neck: No nuchal rigidity. No lymphadenopathy. No posterior cervical spine tenderness or step-offs. Respiratory: Not using accessory muscles of respiration.. No rhonchi. No rales. Wheezing on end auscultation bilaterally more prominent on the right than the left. Cardiovascular: Regular rate regular rhythm.No murmurs. No rubs were apprec iated.S1, S2 normal. Distal pulses are palpable 2+ bilaterally. GI: Abdomen was soft. Nontender. Non Distended. No pulsatile abdominal masses or bruits. No rebound. No guarding. Bowel sounds were present and normal. Muscle skeletal: Full range of motion of both the upper and lower extremities bilaterally.Normal muscle tone.No assymetrical calf tenderness or swelling. Skin: No petechia, no purpura. No lesions on the palms or the soles of the feet. No maculopapular rash. NEURO: Patient was alert, awake, orientated x3.No facial droop. Gait observed and normal with no ataxia.Speech had regular rate and rhythm. No focal neurological deficits. Result Diagram: 06/06/18 0615 06/06/18 0615 Results 24 hrs Laboratory Tests Test 06/06/18 06:15 06/06/18 06:22 06/06/18 08:05 White Blood Count 165.7 10^3/ul Red Blood Count 2.33 10^6/ul Hemoglobin 6.6 g/dl Hematocrit 20.5 % Mean Corpuscular Volume 88.0 fl Mean Corpuscular Hemoglobin 28.3 pg Mean Corpuscular 32.2 g/dl Hemoglobin Concent Red Cell Distribution Width 16.4 % Platelet Count 27 10^3/UL Mean Platelet Volume 9.3 fl Immature Granulocytes % 1.200 % Neutrophils % % Lymphocytes % % Lymphocytes % (Manual) 19 % Monocytes % % Eosinophils % % Basophils % % Blast Cells % (Manual) 81.0 % Nucleated Red Blood Cells % 0.0 /100WBC Immature Granulocytes # 2.010 10^3/ul Neutrophils # 10^3/ul Lymphocytes (Manual) 31.4 10^3/ul Lymphocytes # 10^3/ul Monocytes # 10^3/ul Eosinophils # 10^3/ul Basophils # 10^3/ul Nucleated Red Blood Cells # 10^3/ul White Cell Morphology Comment @See below Platelet Estimate SIG DECREASED Hypochromasia 2+ Anisocytosis 1+ Spherocytes 1+ Red Cell Morphology Comment @See below Sodium Level 135 mmol/L Potassium Level 4.8 mmol/L Chloride Level 99 mmol/L Carbon Dioxide Level 25 mmol/L Anion Gap 11 Blood Urea Nitrogen 30 mg/dl Creatinine 1.26 mg/dl Est Glomerular Filtrat Rate mL/min mL/min Glucose Level 147 mg/dl Calcium Level 8.8 mg/dl Iron Level 237 ug/dl Total Iron Binding Capacity 245 ug/dl Percent Iron Saturation 97 % SAT Ferritin 3880.0 ng/ml Total Bilirubin 1.0 mg/dl Direct Bilirubin 0.00 mg/dl Indirect Bilirubin 1.0 mg/dl Aspartate Amino Transf (AST/SGOT) 100 IU/L Alanine 107 IU/L Aminotransferase (ALT/SGPT) Alkaline Phosphatase 124 IU/L Lactate Dehydrogenase 2029 IU/L Total Protein 8.2 g/dl Albumin 3.5 g/dl Globulin 4.70 g/dl Albumin/Globulin Ratio 0.74 POC Venous Lactate 2.8 mmol/L 1.9 mmol/L Current Medications Medications Dose Sig/Tony Start Time Status Last (Trade) Ordered Route PRN Stop Time Admin Dose Reason Admin Morphine 4 mg ONCE STAT 06/06/18 DC 06/06/18 Sulfate IV 06:11 07:06 (morphine) 06/06/18 06:13 Ondansetron 4 mg ONCE STAT 06/06/18 DC 06/06/18 HCl (Zofran IV 06:11 07:06 Inj) 06/06/18 06:13 Sodium 2,590 ml BOLUS OVER 2 06/06/18 DC 06/06/18 Chloride HOURS STAT 06:24 07:06 (NS) IV* 06/06/18 06:26 Cefepime HCl 50 ml @ ONCE STAT 06/06/18 DC 06/06/18 100 mls/hr IVPB 06:24 07:06 06/06/18 06:53 Vancomycin 250 ml @ ONCE ONCE 06/06/18 DC 06/06/18 HCl 125 mls/hr IVPB 06:30 08:23 06/06/18 08:29 Albuterol 5 mg ONCE STAT 06/06/18 DC 06/06/18 (Proventil NEB 06:32 06:36 0.083% (Neb)) 06/06/18 06:33 Ipratropium 0.5 mg ONCE STAT 06/06/18 DC 06/06/18 [place] NEB 06:32 06:36 (Atrovent 06/06/18 06:33 0.02% (Neb)) Procedures/MDM This is a 72-year-old male with a known history of AML. The patient presented to the emergency department with generalized myalgias. Given that the patient had severe leukocytosis thrombocytopenia and anemia the patient will have a septic workup. The patient's lactic acid was elevated. Blood cultures urine cultures were obtained. He received a 30 cc/kg bolus of normal saline. He was treated for sepsis of unclear etiology. He was also transfused 2 units of packed red blood cells as he was symptomatic. Patient's infectious symptoms have not stabilized and the patient is at risk of rapid decompensation. The patient will be admitted for careful hydration, antibiotic therapy, and infectious source control. Severe Sepsis Assessment: Infectious Source: Unknown source End organ damage indicated by: [Lactate > 2.0 mmol/L Hypotension( SBP < 90 or >40 mmHG drop or MAP < 65) Acute Resp Failure (sat < 92% w/o oxygen) Severe Sepsis Managment: Blood Cultures X 2 before broad spectrum antibiotics initiated within 3 hours of recognition. 30 ml/kg NS bolus Completed Initial Lactate: 2.8 Repeat Lactate pending Septic Shock Assessment (1 hour post 30 ml/kg fluid bolus): Hypotension (SBP < 90 or 40 mmHg drop, MAP < 65): No Lactic acid > 4.0 No I considered further perfusion assessment with CVP measurement, SCVO2, bedside ultrasound volume assessment, passive leg raise, trial of further fluid bolus. And preceded with IV fluids I obtained a 1 view chest radiograph which showed no infiltrates no pneumothorax pleural effusion. 12 Lead EKG tracing ordered and reviewed by myself showed: Normal sinus rhythm of 93 bpm and no arrhythmia. AR interval normal. QRS duration normal. No ST segment elevation No ST segment depression. No changes consistent with acute ischemia. Critical Care: Time: 654 minutes Treatments/Evaluations: Close monitoring and treatment of unstable vital signs, cardiorespiratory, and neurologic status, while maintaining tight balance of fluid, respiratory, and cardiac interventions. Time does not include performing any of the above billable procedures. Departure Diagnosis: Primary Impression: Anemia Anemia type: unspecified type Qualified Codes: D64.9 - Anemia, unspecified Additional Impressions: Thrombocytopenia Sepsis Sepsis type: sepsis due to unspecified organism Qualified Codes: A41.9 - Sepsis, unspecified organism Condition: Serious FLOR YEAGER MD Jun 06, 2018 06:18
[2018-06-06] MEDS ORDERED: SODIUM CHLORIDE 0.9% 1L BAG IV* STA (06:24)
[2018-06-06] MEDS ORDERED: CEFEPIME 2GM/50 ML (PMX) 50 ML IVPB STA (06:24)
[2018-06-06] MEDS ORDERED: VANCOMYCIN 1 GM (PMX) 250 ML IVPB ONE (06:30)
[2018-06-06] MEDS ORDERED: IPRATROPIUM (NEB) 0.5 MG/2.5 ML AMP NEB STA (06:32)
[2018-06-06] MEDS ORDERED: ALBUTEROL 0.083% (NEB) 2.5 MG/3 ML AMP NEB STA (06:32)
[2018-06-06] MEDS ORDERED: ONDANSETRON 4 MG INJ IV PRN ×2 (10:00→17:30)
[2018-06-06] MEDS ORDERED: ACETAMINOPHEN 325 MG TAB PO PRN ×2 (10:00→22:00)
[2018-06-06] MEDS ORDERED: ALBUTEROL 0.5% (NEB) 2.5 MG/0.5 ML AMP INH STA (11:23)
[2018-06-06] MEDS ORDERED: IPRATROPIUM (NEB) 0.5 MG/2.5 ML AMP INH STA (11:23)
[2018-06-06 15:45] VITALS: BP 132/96; PULSE 100; RESP 19
[2018-06-06 16:17] VITALS: PULSE 106
[2018-06-06] MEDS ORDERED: morphine 2 MG INJ IV PRN (17:00)
[2018-06-06] MEDS ORDERED: ZOLPIDEM 5 MG TAB PO PRN (17:30)
[2018-06-06] MEDS: MAGNESIUM HYDROXIDE 30ML CUP PO PRN (19:21)
[2018-06-06] MEDS ORDERED: FUROSEMIDE 20 MG INJ IV ONE ×3 (19:30)
[2018-06-06 20:00] VITALS: BP 139/69; PULSE 101; PULSE 105; RESP 18
[2018-06-06] MEDS ORDERED: BISACODYL 10 MG SUPP PR PRN (22:00)
[2018-06-06] MEDS ORDERED: NA PHOSPHATE/BIPHOS 133 ML ENEMA PR ONE (22:00)
[2018-06-06] MEDS: TAMSULOSIN (SR) 0.4 MG CAP PO SCH (22:10)
[2018-06-06] MEDS: LISINOPRIL 10 MG TAB PO SCH (22:10)
[2018-06-07] VITALS (11 sets, daily range): BP systolic 109–134; BP diastolic 60–77; PULSE 59–101; RESP 18–22
[2018-06-07] MEDS: HYDROCODONE/APAP (5/325) TAB PO PRN ×2 (00:19→07:15)
[2018-06-07] MEDS: PANTOPRAZOLE 40 MG INJ IV SCH (06:18)
[2018-06-07] MEDS ORDERED: FUROSEMIDE 20 MG INJ IV SCH (06:30)
[2018-06-07] MEDS: HYDROmorphONE 2 MG/ML SYG IV PRN ×3 (10:09→22:48)
[2018-06-07] MEDS: MAGNESIUM HYDROXIDE 30ML CUP PO PRN (10:58)
[2018-06-07] MEDS: LISINOPRIL 10 MG TAB PO SCH ×2 (10:58→21:34)
--- NOTE | 2018-06-07 13:21 | HP ---
DATE OF ADMISSION: 06/06/2018 HISTORY OF PRESENT ILLNESS: A 72-year-old male patient, who came into the emergency room again with severe weakness, acute anemia. 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 The patient's oncologist is Dr. Reed. She called me and therefore, in a team effort, the patient will be admitted for blood transfusion at this time again. PAST MEDICAL HISTORY: Hypertension, degenerative joint disease, dyslipidemia, gastroesophageal reflu x disease, BPH and depression. The patient continued complaints at this time of generalized weakness and shortness of breath. HOME MEDICATIONS: 1. [place] 5/325 p.r.n. every 4 hours. 2. Viibryd 40 mg once a day. 3. Tamsulosin 0.4 at bedtime. 4. Namenda XR once a day. 5. Seroquel XR 150 once a day. 6. Zofran p.r.n. for nausea. 7. Lisinopril 10 mg b.i.d. 8. Vascepa 2 caps twice a day. 9. Toviaz 4 mg every for 24 hours. 10. Omeprazole 40 once a day. 11. Crestor 40 once a day. 12. Meloxicam 7.5 twice a day. 13. Carvedilol 12.5 twice a day. ALLERGIES: NO KNOWN ALLERGIES. PAST MEDICAL HISTORY: As I mentioned above. FAMILY HISTORY: Positive for hypertension. PHYSICAL EXAMINATION: VITAL SIGNS: At this time, blood pressure is 140/60, heart rate 90, respiratory rate 18, afebrile. GENERAL: Alert and oriented x3. He seems to be straining and visible wheezing. HEENT: Head is atraumatic, normocephalic. Pupils are equal and reactive to light. Extraocular musc les are intact. Nares are clear. No obstruction. No deviation of septum. Oral cavity: Normal ora l hygiene. Ear canals are clear. No signs of inflammation or infection. Tympanic membranes are int act. NECK: Supple. No JVD, no surgical scars, no lymph nodes palpable over the neck. CHEST: AP contour is within normal limits. BREASTS: Nipples are normal. No nipple retraction. HEART: S1, S2. Regular rate and rhythm with a systolic murmur over the apex. LUNGS: Scattered rhonchi over the lungs with inspiratory and expiratory wheezes over the lungs. ABDOMEN: Distended, tender over all the abdomen and no rebound tenderness. EXTREMITIES: A +2 edema of the lower extremities. Pulses are palpable, but diminished. NEUROLOGIC: Cranial nerves II through XII are completely intact. LABORATORY DATA: Today, white count is 165,000 and more, hemoglobin 6.6, hematocrit 20.5 and platele t count 27. Chemistries are more or less stable. BUN and creatinine are stable and sodium and potas sium also. Sodium 135, potassium 4.8, BUN 30, creatinine 1.27. ADMITTING DIAGNOSES: 1. Acute lymphoblastic anemia. 2. Hypertension. 3. Pain secondary to neoplastic disease. 4. Shortness of breath. The patient will be admitted to have blood transfusion. We will a long discussion with the patient, the and the daughter regarding plans. I also discussed with Dr. Reed regarding the very po or prognosis of his illness at this time and possibly to consider hospice measures at this time. Aga in, I will discuss with the . I had already discussed multiple times but I will discuss again wi th the and the daughter and himself. I talked to him. He said he did not want any intubation o r any heroic measures or resuscitation, knowing his illness, but I will go ahead and discuss with the and the daughter to confirm that. Dictated By: ARMANDO ZAMORA/ANTONINO Conf#: [id number] DID#: [id number]
[2018-06-07] MEDS: ALBUTEROL/IPRATROPIUM (NEB) 3 ML AMP HHN SCH ×2 (16:59→20:08)
[2018-06-07] MEDS: TAMSULOSIN (SR) 0.4 MG CAP PO SCH (21:33)
--- NOTE | 2018-06-07 22:00 | CONS ---
Consultation Date/Type/Reason Admit Date/Time Jun 06, 2018 at 09:54 Date of Consultation: Jun 06, 2018 Date/Time of Note DATE: 06/07/18 TIME: 22:00 Past Medical History Home Meds Active Scripts Hydrocodone/Acetaminophen ([place] 5-325 Tablet) 1 Each Tablet, 1 TAB PO Q6H PRN for PAIN, #15 TAB Prov:KLAEY BUSH DO 05/20/18 Reported Medications Tamsulosin Hcl* (Tamsulosin Hcl*) 0.4 Mg Cap.er.24h, 0.4 MG PO HS, CAP 04/03/18 Ondansetron Hcl* (Zofran*) 4 Mg Tab, 4 MG PO BID PRN for NAUSEA AND OR VOMITING, TAB 04/03/18 Lisinopril* (Lisinopril*) 10 Mg Tablet, 10 MG PO BID, #30 TAB 04/03/18 Omeprazole/Sodium Bicarbonate (OMEPRAZOLE-BICARB 40-1,100 CAP) 1 Each Capsule, 1 CAP PO DAILY, #30 CAP 04/03/18 Carvedilol* (Carvedilol*) 12.5 Mg Tablet, 12.5 MG PO BID, #60 TAB 04/03/18 Discontinued Reported Medications Vilazodone Hcl (Viibryd) 40 Mg Tablet, 40 MG PO DAILY, TAB 04/03/18 Memantine* (Namenda* XR) 7 Mg Cap.spr.24, 7 MG PO DAILY, #30 TAB 04/03/18 Quetiapine Fumarate* (Seroquel* XR) 150 Mg Tab.sr.24h, 150 MG PO DAILY, #30 TAB 04/03/18 Prochlorperazine* (Prochlorperazine*) 10 Mg Tablet, 10 MG PO BID PRN for NAUSEA, TAB 04/03/18 Icosapent Ethyl (VASCEPA) 1 Gm Capsule, 1 GM PO QID, CAP 04/03/18 Fesoterodine Fumarate (Toviaz) 4 Mg Tab.sr.24h, 4 MG PO DAILY, TAB 04/03/18 Rosuvastatin Calcium* (Crestor*) 40 Mg Tablet, 40 MG PO QHS, #30 TAB 04/03/18 Meloxicam* (Meloxicam*) 7.5 Mg Tablet, 7.5 MG PO BID, #30 TAB 04/03/18 Medications Current Medications Carvedilol (Coreg) 12.5 mg BID PO Last administered on 06/07/18 21:34; Admin Dose 12.5 MG; Start 06/06/18 at 21:00 Acetaminophen/ Hydrocodone Bitart ([place] (5/325)) 1 tab Q6H PRN PO PAIN Last a dministered on 06/07/18 07:15; Admin Dose 1 TAB; Start 06/06/18 at 17:30 Lisinopril (Zestril) 10 mg BID PO Last administered on 06/07/18 21:34; Admin Dose 10 MG; Start 06/06/18 at 21:00 Tamsulosin HCl (Flomax) 0.4 mg HS PO Last administered on 06/07/18 21:33; Admin Dose 0.4 MG; Start 06/06/18 at 21:00 Ondansetron HCl (Zofran Inj) 4 mg Q4H PRN IV NAUSEA AND/OR VOMITING; Start 06/06/18 at 17:30 Pantoprazole (Protonix Iv) 40 mg DAILY@06 IV Last administered on 06/07/18 06:18; Admin Dose 40 MG; Start 06/07/18 at 06:00 Zolpidem Tartrate (Ambien) 5 mg HS PRN PO INSOMNIA; Start 06/06/18 at 17:30 Magnesium Hydroxide (Milk Of Mag) 30 ml BID PRN PO CONSTIPATION Last administered on 06/07/18 10:58; Admin Dose 30 ML; Start 06/06/18 at 17:30 Bisacodyl (Dulcolax Supp) 10 mg DAILY PRN [place] CONSTIPATION Last administered on 06/07/18 10:58; Admin Dose 10 MG; Start 06/06/18 at 22:00 Acetaminophen (Tylenol Tab) 650 mg Q4H PRN PO MILD PAIN(1-3)OR ELEVATED TEMP Last administered on 06/06/18 22:29; Admin Dose 650 MG; Start 06/06/18 at 22:00 Hydromorphone HCl (Dilaudid) 2 mg Q4H PRN IV SEVERE PAIN LEVEL 7-10 Last administered on 06/07/18 19:03; Admin Dose 2 MG; Start 06/07/18 at 09:30 Albuterol/ Ipratropium (Duoneb) 3 ml Q6HWA RESP THERAPY HHN Last administered on 06/07/18at 20:08; Admin Dose 3 ML; Start 06/07/18 at 14:00 Allergies: Coded Allergies: No Known Allergy (Unverified , 06/06/18) Social History Smoking Status: Former smoker Exam/Review of Systems Exam Vitals Vital Signs Date Temp Pulse Resp B/P (MAP) Pulse Ox O2 O2 Flow FiO2 Time Delivery Rate 06/07/18 98.3 71 18 131/66 95 20:13 (87) 06/07/18 2.0 20:08 06/07/18 Nasal 20:08 Cannula 06/07/18 30 10:00 Intake and Output 06/06/18 06/06/18 06/07/18 1515:00 23:00 07:00 IntakeIntake Total 700 ml 240 ml 1550 ml OutputOutput Total 750 ml BalanceBalance 700 ml 240 ml 800 ml Results Result Diagram: 06/07/18 1257 06/07/18 1256 Results 24hrs Laboratory Tests Test 06/07/18 05:48 06/07/18 12:56 06/07/18 12:57 Lab Scanned Report BLOOD TRANSFUSION Sodium Level 135 Potassium Level 4.3 Chloride Level 102 Carbon Dioxide Level 25 Anion Gap 8 Blood Urea Nitrogen 34 H Creatinine 1.08 Est Glomerular Filtrat Rate mL/min Glucose Level 144 Calcium Level 8.4 B-Type Natriuretic Peptide 4130 H White Blood Count 129.5 H Red Blood Count 3.35 #L Hemoglobin 9.8 #L Hematocrit 29.8 #L Mean Corpuscular Volume 89.0 Mean Corpuscular Hemoglobin 29.3 Mean Corpuscular 32.9 Hemoglobin Concent Red Cell Distribution Width 15.7 H Platelet Count 19 *L Mean Platelet Volume 9.6 Immature Granulocytes % 1.300 H Neutrophils % Lymphocytes % Lymphocytes % (Manual) 32 Monocytes % Eosinophils % Basophils % Blast Cells % (Manual) 68.0 H Nucleated Red Blood Cells % 0.0 Immature Granulocytes # 1.620 H Neutrophils # Lymphocytes (Manual) 41.4 H Lymphocytes # Monocytes # Eosinophils # Basophils # Nucleated Red Blood Cells # Platelet Estimate SIG DECREASED Polychromasia 1+ Poikilocytosis 1+ Anisocytosis 1+ Microcytosis 1+ Medications Medication Current Medications Carvedilol (Coreg) 12.5 mg BID PO Last administered on 06/07/18 21:34; Admin Dose 12.5 MG; Start 06/06/18 at 21:00 Acetaminophen/ Hydrocodone Bitart ([place] (5/325)) 1 tab Q6H PRN PO PAIN Last administered on 06/07/18 07:15; Admin Dose 1 TAB; Start 06/06/18 at 17:30 Lisinopril (Zestril) 10 mg BID PO Last administered on 06/07/18 21:34; Admin Dose 10 MG; Start 06/06/18 at 21:00 Tamsulosin HCl (Flomax) 0.4 mg HS PO Last administered on 06/07/18 21:33; Admin Dose 0.4 MG; Start 06/06/18 at 21:00 Ondansetron HCl (Zofran Inj) 4 mg Q4H PRN IV NAUSEA AND/OR VOMITING; Start 06/06/18 at 17:30 Pantoprazole (Protonix Iv) 40 mg DAILY@06 IV Last administered on 06/07/18 06:18; Admin Dose 40 MG; Start 06/07/18 at 06:00 Zolpidem Tartrate (Ambien) 5 mg HS PRN PO INSOMNIA; Start 06/06/18 at 17:30 Magnesium Hydroxide (Milk Of Mag) 30 ml BID PRN PO CONSTIPATION Last administered on 06/07/18 10:58; Admin Dose 30 ML; Start 06/06/18 at 17:30 Bisacodyl (Dulcolax Supp) 10 mg DAILY PRN [place] CONSTIPATION Last administered on 06/07/18 10:58; Admin Dose 10 MG; Start 06/06/18 at 22:00 Acetaminophen (Tylenol Tab) 650 mg Q4H PRN PO MILD PAIN(1-3)OR ELEVATED TEMP Last administered on 06/06/18 22:29; Admin Dose 650 MG; Start 06/06/18 at 22:00 Hydromorphone HCl (Dilaudid) 2 mg Q4H PRN IV SEVERE PAIN LEVEL 7-10 Last administered on 06/07/18 19:03; Admin Dose 2 MG; Start 06/07/18 at 09:30 Albuterol/ Ipratropium (Duoneb) 3 ml Q6HWA RESP THERAPY HHN Last administered on 06/07/18 20:08; Admin Dose 3 ML; Start 06/07/18 at 14:00 HEIDE LYOSN MD Jun 07, 2018 22:00
--- NOTE | 2018-06-07 22:01 | CONS ---
Consultation Date/Type/Reason Admit Date/Time Jun 06, 2018 at 09:54 Initial Consult Date 06/06/18 Date/Time of Note DATE: 06/07/18 TIME: 22:01 Exam/Review of Systems Exam Vitals Vital Signs Date Temp Pulse Resp B/P (MAP) Pulse Ox O2 O2 Flow FiO2 Time Delivery Rate 06/07/18 98.3 71 18 131/66 95 20:13 (87) 06/07/18 2.0 20:08 06/07/18 Nasal 20:08 Cannula 06/07/18 30 10:00 Intake and Output 06/06/18 06/06/18 06/07/18 1515:00 23:00 07:00 IntakeIntake Total 700 ml 240 ml 1550 ml OutputOutput Total 750 ml BalanceBalance 700 ml 240 ml 800 ml Results Result Diagram: 06/07/18 1257 06/07/18 1256 Results 24hrs Laboratory Tests Test 06/07/18 05:48 06/07/18 12:56 06/07/18 12:57 Lab Scanned Report BLOOD TRANSFUSION Sodium Level 135 Potassium Level 4.3 Chloride Level 102 Carbon Dioxide Level 25 Anion Gap 8 Blood Urea Nitrogen 34 H Creatinine 1.08 Est Glomerular Filtrat Rate mL/min Glucose Level 144 Calcium Level 8.4 B-Type Natriuretic Peptide 4130 H White Blood Count 129.5 H Red Blood Count 3.35 #L Hemoglobin 9.8 #L Hematocrit 29.8 #L Mean Corpuscular Volume 89.0 Mean Corpuscular Hemoglobin 29.3 Mean Corpuscular 32.9 Hemoglobin Concent Red Cell Distribution Width 15.7 H Platelet Count 19 *L Mean Platelet Volume 9.6 Immature Granulocytes % 1.300 H Neutrophils % Lymphocytes % Lymphocytes % (Manual) 32 Monocytes % Eosinophils % Basophils % Blast Cells % (Manual) 68.0 H Nucleated Red Blood Cells % 0.0 Immature Granulocytes # 1.620 H Neutrophils # Lymphocytes (Manual) 41.4 H Lymphocytes # Monocytes # Eosinophils # Basophils # Nucleated Red Blood Cells # Platelet Estimate SIG DECREASED Polychromasia 1+ Poikilocytosis 1+ Anisocytosis 1+ Microcytosis 1+ Medications Medication Current Medications Carvedilol (Coreg) 12.5 mg BID PO Last administered on 06/07/18at 21:34; Admin Dose 12.5 MG; Start 06/06/18 at 21:00 Acetaminophen/ Hydrocodone Bitart ([place] (5/325)) 1 tab Q6H PRN PO PAIN Last administered on 06/07/18 07:15; Admin Dose 1 TAB; Start 06/06/18 at 17:30 Lisinopril (Zestril) 10 mg BID PO Last administered on 06/07/18 21:34; Admin Dose 10 MG; Start 06/06/18 at 21:00 Tamsulosin HCl (Flomax) 0.4 mg HS PO Last administered on 06/07/18 21:33; Admin Dose 0.4 MG; Start 06/06/18 at 21:00 Ondansetron HCl (Zofran Inj) 4 mg Q4H PRN IV NAUSEA AND/OR VOMITING; Start 06/06/18 at 17:30 Pantoprazole (Protonix Iv) 40 mg DAILY@06 IV Last administered on 06/07/18 06:18; Admin Dose 40 MG; Start 06/07/18 at 06:00 Zolpidem Tartrate (Ambien) 5 mg HS PRN PO INSOMNIA; Start 06/06/18 at 17:30 Magnesium Hydroxide (Milk Of Mag) 30 ml BID PRN PO CONSTIPATION Last administered on 06/07/18 10:58; Admin Dose 30 ML; Start 06/06/18 at 17:30 Bisacodyl (Dulcolax Supp) 10 mg DAILY PRN [place] CONSTIPATION Last administered on 06/07/18 10:58; Admin Dose 10 MG; Start 06/06/18 at 22:00 Acetaminophen (Tylenol Tab) 650 mg Q4H PRN PO MILD PAIN(1-3)OR ELEVATED TEMP Last administered on 06/06/18 22:29; Admin Dose 650 MG; Start 06/06/18 at 22:00 Hydromorphone HCl (Dilaudid) 2 mg Q4H PRN IV SEVERE PAIN LEVEL 7-10 Last administered on 06/07/18 19:03; Admin Dose 2 MG; Start 06/07/18 at 09:30 Albuterol/ Ipratropium (Duoneb) 3 ml Q6HWA RESP THERAPY HHN Last administered on 06/07/18 20:08; Admin Dose 3 ML; Start 06/07/18 at 14:00 HEIDE LYONS MD Jun 07, 2018 22:01
[2018-06-07] MEDS ORDERED: FUROSEMIDE 40 MG INJ IV ONE (22:30)
[2018-06-07] MEDS ORDERED: ALBUTEROL/IPRATROPIUM (NEB) 3 ML AMP HHN PRN (22:30)
[2018-06-08] VITALS: PULSE 84
[2018-06-08] MEDS: ALBUTEROL/IPRATROPIUM (NEB) 3 ML AMP HHN SCH ×2 (01:52→08:43)
[2018-06-08] MEDS: MAGNESIUM HYDROXIDE 30ML CUP PO PRN (02:39)
[2018-06-08 04:00] VITALS: PULSE 89
[2018-06-08 05:26] VITALS: BP 111/57; PULSE 91; RESP 19
[2018-06-08] MEDS: PANTOPRAZOLE 40 MG INJ IV SCH (06:38)
[2018-06-08] MEDS: HYDROmorphONE 2 MG/ML SYG IV PRN ×2 (07:34→12:02)
[2018-06-08 07:43] VITALS: BP 116/60; PULSE 89; RESP 20
[2018-06-08 08:17] VITALS: PULSE 94
[2018-06-08] MEDS: LISINOPRIL 10 MG TAB PO SCH (10:02)
[2018-06-08 11:29] VITALS: BP 98/53; PULSE 82; RESP 22
--- NOTE | 2018-06-10 11:05 | DS ---
DATE OF ADMISSION: 06/06/2018 DATE OF DISCHARGE: 06/08/2018 HISTORY OF PRESENT ILLNESS: A 72-year-old male, Alejandro Gomez was admitted for acute myeloblastic leukemia, acute anemia, short ness of breath, severe pain. 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 He had refused chem otherapy. He comes frequently for blood transfusions. At this time he came again for blood transfus ion, but he had very high white count and decreased platelets. He is in a blastic mode in severe franky n, so patient was admitted for evaluation and treatment. Patient was started on blood transfusion. He received 5 units of packed red blood cells and the plan was for him and for the family that the pa tient will benefit from hospice services and comfort measures from this point on. During the stay in the hospital, e tolerated the treatment. He was transfused 5 units. He was also diuresed breathing treatment for control and comfort measures and for shortness of breath on 06/08/2018 with discussion with the daughter, his and himself multiple times, they decided that they wished the patient to go to [facility] with hospice services, [facility]. Everything was arranged and [facility] came and evaluated the patient and 06/08/2018 transferred the patient to [facility] in more or less stable, but poor prognosis with diagnosis of acute myeloblastic leukemi a with acute anemia, advanced disease process. Acute and chronic pain secondary to malignant illness and prognosis is very poor prognosis. Patient discharged at this time in stable condition. Dictated By: ARMANDO ZAMORA/ANTONINO Conf#: [id number] DID#: [id number]
== END 2018-06-08 12:40 | DRG 836 ==
LOC: E/R 05:52 → 6WM 09:54
PROVIDERS: ADMIT Family Medicine; ATTEND Family Medicine
PROC: 30233N1 Transfusion of Nonautologous Red Blood Cells into Peripheral Vein, Percutaneous Approach (ICD-10-PCS; principal; 2018-06-06)
DX: C93.00 Acute monoblastic/monocytic leukemia, not having achieved remission (principal); G89.3 Neoplasm related pain (acute) (chronic); I10 Essential (primary) hypertension; K21.9 Gastro-esophageal reflux disease without esophagitis; N40.0 Benign prostatic hyperplasia without lower urinary tract symptoms; F32.9 Major depressive disorder, single episode, unspecified; D63.8 Anemia in other chronic diseases classified elsewhere
CPT/HCPCS: 36430; 71045; 80048; 80053; 82728; 83540; 83605; 83615; 83880; 84466; 85025; 86850; 86870; 86900; 86901; 86920; 87040; 87400; 93005; 94640; 94644; 94664; 96365; 96375; C9113; J0692; J1170; J1940; J2270; J2405; J3370; J7030; P9016